=== PATIENT | male | born 2000 | race Hispanic/Latino ===

== ENCOUNTER 2018-09-22 02:57 | Emergency (ER) | payer SELFPAY ==
--- NOTE | 2018-09-22 08:09 | RAD ---
CHEST 1 VIEW: Date: 09/22/18 INDICATION: Injury. COMPARISON: Prior exam dated 05/16/13. FINDINGS: Lungs are clear. Heart size is within normal limits. No acute osseous abnormality is evident. IMPRESSION: No definite acute cardiopulmonary abnormality. Mild hyperinflation. POS: [facility]
--- NOTE | 2018-09-22 08:24 | CT ---
PRELIMINARY REPORT/[facility]/EMERGENCY AFTER HOURS PROCEDURE: EXAM: CT Head Without Contrast EXAM DATE/TIME: 09/22/2018 3:25 AM CLINICAL HISTORY: 18 years old, male; Injury or trauma; Initial encounter; Blunt trauma (contusions or hematomas); With loss of consciousness; Patient HX: Holly0 presents to the ED with C/O fall, ejected from horse, at appr oximately 02:30. Friend witnessed the fall and reports that the horse fell and the PT was ejected off of the left side of the horse. Friend reports he hit his head and lost consciousness. Friend reports loc for 4-5 min. PT C/O headache now. PT denies weakness or numbness. TECHNIQUE: Imaging protocol: Axial computed tomography images of the head without contrast. COMPARISON: No relevant prior studies available. FINDINGS: Brain: Normal. Ventricles: Normal. Bones/joints: Normal. Sinuses: Minimal ethmoid sinus disease. Mastoid air cells: Normal as visualized. Soft tissues: Unremarkable. IMPRESSION: No acute intracranial abnormality. Thank you for allowing us to participate in the care of your patient. Dictated and Authenticated by: Addi Bahena MD 09/22/2018 3:39 AM Central Time ([place] & [place]) FINAL REPORT EMERGENCY AFTER HOURS CT BRAIN WITHOUT CONTRAST: Date: 09/22/18 IMPRESSION: I agree with the preliminary report provided by [facility]. No acute intracranial abnormality. POS: [facility]
== END 2018-09-22 04:24 | disposition home or self-care (01) ==
LOC: ERS 02:57
DX: S06.0X1A Concussion with loss of consciousness of 30 minutes or less, initial encounter (principal); S90.512A Abrasion, left ankle, initial encounter; J45.909 Unspecified asthma, uncomplicated; Z79.51 Long term (current) use of inhaled steroids; Z87.891 Personal history of nicotine dependence; V80.010A Animal-rider injured by fall from or being thrown from horse in noncollision accident, initial encounter
CPT/HCPCS: 70450; 71045

== ENCOUNTER 2018-09-23 19:30 | Emergency (ER) | payer SELFPAY ==
[2018-09-23] MEDS ORDERED: Acetaminophen 325 MG TAB ONE (21:30)
[2018-09-23] MEDS ORDERED: Oxymetazoline HCl 0.05% ( 15 ML ) NASAL SCH (21:45)
== END 2018-09-23 22:00 | disposition home or self-care (01) ==
LOC: ERS 19:30
DX: F07.81 Postconcussional syndrome (principal); J45.909 Unspecified asthma, uncomplicated; R04.0 Epistaxis; Z87.891 Personal history of nicotine dependence; Z79.51 Long term (current) use of inhaled steroids
CPT/HCPCS: 99283